=== PATIENT | female | born 1955 | race Caucasian/White ===

== ENCOUNTER 2017-06-05 09:59 | Emergency (ER) | payer BC ==
[~2017-06-05] VITALS: Ht 165.1 cm; Wt 71.6 kg
[2017-06-05 11:05] LABS: ADD MIUA? NO; BILIRUBIN NEGATIVE; BLOOD NEGATIVE; COLOR YELLOW ((YELLOW)); GLUCOSE (STRIP) NEGATIVE; KETONES NEGATIVE; LEUKOCYTES NEGATIVE; NITRITE NEGATIVE; PROTEIN (STRIP) NEGATIVE; SPECIFIC GRAVITY 1.013 (1.000-1.030); UCUL ADDED? NO; UROBILINOGEN 0.2 MG/DL (0.2-1.0)
[2017-06-05 11:45] LABS: HEMATOCRIT 42.1 % (36.0-46.0); MCH 34.9 PG (29.0-34.0); MCHC 36.1 G/DL (30.0-36.0); MCV 96.8 FL (83-99); MEAN PLAT.VOLUME 9.6 uM^3 (9.5-12.4); PLATELET COUNT 191 K/uL (156-360); RBC DIS.WIDTH-CV 10.8 % (11.8-14.6); RBC DIS.WIDTH-SD 38.9 % (39-53); RED BLOOD COUNT 4.35 M/uL (3.80-5.20); WHITE BLOOD COUNT 6.3 K/uL (4.1-10.2)
[2017-06-05 11:57] LABS: CHLORIDE 96 mEq/L (99-109); POTASSIUM 4.3 mEq/L (3.7-5.4); SODIUM 134 mEq/L (136-147)
[2017-06-05 11:59] LABS: GLUCOSE 141 mg/dL (70-99)
[2017-06-05 12:00] LABS: ANION GAP 13 MEQ/L (2-14)
[2017-06-05 12:01] LABS: TOTAL BILIRUBIN 0.8 mg/dL (0.0-1.0)
[2017-06-05 12:02] LABS: ALKALINE PHOSPHATASE 60 IU/L (3-129)
[2017-06-05 12:04] LABS: UREA NITROGEN (BUN) 13 mg/dL (9-23)
[2017-06-05 12:06] LABS: GFR ESTIMATE (CALCULATED) > 59 mL/min/; LIPASE 34 U/L (1.0-51.0)
[2017-06-05] MEDS ORDERED: NORCO 5/3251 TABLET PO (15:39)
[2017-06-05 16:16] VITALS: BP 136/89
== END 2017-06-05 16:17 | disposition home or self-care (01) ==
LOC: EME 09:59
DX: N13.30 Unspecified hydronephrosis (principal); N83.201 Unspecified ovarian cyst, right side; E11.9 Type 2 diabetes mellitus without complications; I10 Essential (primary) hypertension; F17.200 Nicotine dependence, unspecified, uncomplicated; Z90.49 Acquired absence of other specified parts of digestive tract
CPT/HCPCS: 74176; 80053; 81003; 83690; 85027; 93005; 99281; 99283